=== PATIENT | female | born 1935 | race Caucasian/White ===

== ENCOUNTER → 2017-01-10 | Outpatient (CLI) | payer OTHER ==
[~2017-01-10] MED LIST: B-12; CALCIUM 500 + D1 TAB PO; CERTAGEN PO; FISH OIL 1,0001 CAP PO; MEDROL PO; NABUMETONE PO; PERCOCET5/325 PO
--- NOTE | ~2017-01-10 | BD1 ---
[facility] A Service of [facility] & [facility] RADIOLOGY TEXT RESULTS PATIENT: JAIME COLE LOCATION: [facility] : 35 UNIT #: [id number] AGE: [address]: Lily Arevalo MD SEX: F ORDER DR: [id number] [address] [address] [id number] O MR#: [id number] Acc #: [id number] NAME: JAIME COEL : 1935 SEX: F STUDY DATE/TIME: 01/10/2017 12:40 UNIT: [facility] ROOM: STUDY DESCRIPTION: Dexa Bone Dens 1+ Site Attending Physician: Lily Arevalo M.D. Referring Physician: Lily Arevalo M.D. Ordering Physician: Lily Arevalo M.D. Primary Care Physician: Lily Arevalo M.D. MEDICAL IMAGING REPORT This report is preliminary unless electronic signature is present. EXAM DXA scan 01/10/2017 HISTORY Status post menopause with no hormone replacement therapy. Osteopenia. FINDINGS Bone mineral density in the lumbar spine from L1-L4 is 1.215 g/cm2 which is 0.3 standard deviations above the mean when compared to the young adult reference population which is within the range of normal. This is 1.6 standard deviations above the mean when compared to the age-matched population. Bone mineral density in the left femoral neck was 0.762 g/cm2 which is 2 standard deviations below the mean when compared to the young adult reference population which is characteristic of osteopenia. This is 0.1 standard deviations below the mean when compared to the age-matched population. Bone mineral density in the right femoral neck was 0.741 g/cm2 which is 2.1 standard deviations below the mean when compared to the young adult reference population which is characteristic of osteopenia. This is 0.3 standard deviations below the mean when compared to the age-matched population. IMPRESSION Bone mineral density in the lumbar spine within the range of normal and within the hips bilaterally characteristic of osteopenia. Dictated by... Dinesh Rubin M.D. THIS IS AN ELECTRONICALLY VERIFIED REPORT Dinesh Rubin M.D. at 01/11/2017 2:15 PM KRT/pcl STS. [facility] A Service of [facility] & [facility] RADIOLOGY TEXT RESULTS PATIENT: JAIME COLE [id number] : 35 UNIT #: [id number] AGE: [address]: Lily Arevalo MD SEX: F ORDER DR: TD: 01/10/2017 19:13 JOB #: [id number] MEDICAL IMAGING REPORT Page 1 of 1
--- NOTE | ~2017-01-10 | MY11 ---
[facility] A Service of [facility] RADIOLOGY TEXT RESULTS PATIENT: JAIME COLE LOCATION: [facility] : 35 UNIT #: [id number] AGE: [address]: Lily Arevalo MD SEX: F ORDER DR: [id number] [address] [address] [id number] O MR#: [id number] Acc #: [id number] NAME: JAIME COLE : 1935 SEX: F STUDY DATE/TIME: 01/10/2017 13:15 UNIT: [facility] ROOM: STUDY DESCRIPTION: MY Mammogram Screening Dig Anurag Attending Physician: Lily Arevalo M.D. Referring Physician: Lily Arevalo M.D. Ordering Physician: Lily Arevalo M.D. Primary Care Physician: Lily Arevalo M.D. MEDICAL IMAGING REPORT This report is preliminary unless electronic signature is present. EXAM Digital screening mammogram, 01/10/2017; [facility]. HISTORY 81-year-old woman, no risk elevation. Annual screen. COMPARISON Comparison mammograms date to 10/19/2007, with most recent 01/09/2016. FINDINGS Digital imaging of each breast was completed utilizing a two-view examination of each breast in craniocaudal and mediolateral-oblique projections. Review and interpretation of digital mammograms include a second review in conjunction with FDA-approved CAD device. There is a normal parenchymal presentation bilaterally consistent with the patient's age. There are no breast masses imaged and no parenchymal asymmetry is visualized. There are no suspicious microcalcifications and I see no focal architectural disturbance. IMPRESSION Negative screening digital mammogram. One-year followup recommended. Patients over the age of 40 are entered into a reminder system with target due date for the next mammogram. A result letter will also be sent to the patient. BIRADS: 1 Negative. Dictated by... Cordell Sanchez M.D. [facility] A Service of [facility] RADIOLOGY TEXT RESULTS PATIENT: JAIME COLE LOCATION: [facility] : 35 UNIT #: [id number] AGE: [address]: Lily Arevalo MD SEX: F ORDER DR: THIS IS AN ELECTRONICALLY VERIFIED REPORT Cordell Sanchez M.D. at 01/11/2017 3:01 PM Gurpreet TD: 01/10/2017 18:33 JOB #: [id number] MEDICAL IMAGING REPORT Page 1 of 1
== END | disposition home or self-care (01) ==
LOC: SRAD 12:21 → SMAM 13:30
DX: Z12.31 Encounter for screening mammogram for malignant neoplasm of breast (principal); M81.0 Age-related osteoporosis without current pathological fracture
CPT/HCPCS: 77080; G0202